=== PATIENT | male | born 1945 | race Caucasian/White ===

== ENCOUNTER 2017-03-15 20:14 | Inpatient (IN) | payer MEDICARE ==
[~2017-03-15] VITALS: Ht 193 cm; Wt 115.0 kg
[2017-03-15 20:28] VITALS: BP 154/77; PULSE 82; RESP 16; TEMP 97.8; O2SAT 97
[2017-03-15] MEDS ORDERED: SODIUM CHLORIDE 0.9% FLUSH 10 ML FLUSH IV FLUSH PRN (20:45)
--- NOTE | 2017-03-15 20:49 | PD ---
HPI Chief Complaint: Fall Time Seen by Provider: 20:23 Travel History International Travel<30 days: No Contact w/Intl Traveler<30days: No Traveled to known affect area: No History of Present Illness HPI 71-year-old male arrives with left knee pain after he tripped over a curb stop. Knee extension past 90 causes worsening of pain. Flexed at 90 he feels minimal pain if any. He denies loss of consciousness or head trauma however he does have a small cut on his lower lip as well as abrasions upon the right knee and right foot. Onset sudden. He takes no blood thinning agent. PFSH Past Medical History Arthritis: Yes High Cholesterol: Yes Hypertension: Yes Tetanus Vaccination: < 5 Years Influenza Vaccination: Yes Social History Alcohol Use: Yes (social) Tobacco Use: No Substance Use: No Allergies-Medications (Allergen,Severity, Reaction): Coded Allergies: No Known Allergies (Unverified , 03/15/17) Reported Meds & Prescriptions Reported Meds & Active Scripts Active Zofran Odt (Ondansetron Odt) 4 Mg Tab 4 Mg SL Q8HR PRN Lortab (Hydrocodone-Acetaminophen) 5-325 Mg Tab 1-2 Tab PO Q6H PRN Reported Multivitamin Men (Multiple Vitamins W/ Minerals) 1 Tab Tab 1 Tab PO DAILY Niacin 100 Mg Tab 200 Mg PO DAILY Glucosamine Chondroitin (Smloetzcvpv-Gmdtqufvttr-Qlv C-) 1 Tab Tab 1 Tab PO DAILY Calcium 600 + D (Calcium Carbonate-Vitamin D) 600-400 Mg-Unit Tab 2 Tab PO DAILY Fish Oil ([place]-3 Fatty Acids) 1,200 Mg Cap 1 Tab PO DAILY Terazosin (Terazosin HCl) 1 Mg Cap Unknown Dose PO HS Lisinopril 10 Mg Tab 10 Mg PO BID Pravastatin 40 Mg Tab 40 Mg PO DAILY Review of Systems Except as stated in HPI: all other systems reviewed are Neg Physical Exam Narrative GENERAL: 71-year-old male pleasant well-nourished well-developed SKIN: Focused skin assessment warm/dry. Trace punctate abrasions overlying the patellar distributions of each knee. Small abrasions present on the toes of the right foot. HEAD: Atraumatic. Normocephalic. EYES: Pupils equal and round. No scleral icterus. No injection or drainage. ENT: No nasal bleeding or discharge. Mucous membranes pink and moist. NECK: Trachea midline. No JVD. CARDIOVASCULAR: Regular rate and rhythm. No murmur appreciated. RESPIRATORY: No accessory muscle use. Clear to auscultation. Breath sounds equal bilaterally. GASTROINTESTINAL: Abdomen soft, non-tender, nondistended. Hepatic and splenic margins not palpable. MUSCULOSKELETAL: Left knee is flexed to 90 and the left patella feels somewhat displaced laterally. There is 2+ dorsalis pedis pulse bilaterally. NEUROLOGICAL: Awake and alert. No obvious cranial nerve deficits. Motor grossly within normal limits. Normal speech. PSYCHIATRIC: Appropriate mood and affect; insight and judgment normal. Data Data Last Documented VS Vital Signs Date Time Temp Pulse Resp B/P Pulse Ox O2 Delivery O2 Flow Rate FiO2 03/15/17 22:36 95 18 157/72 94 Room Air 03/15/17 20:28 97.8 Vital signs reviewed Orders Knee, Complete (4vws) (03/15/17 20:31) Iv Access Insert/Monitor (03/15/17 20:31) Ecg Monitoring (03/15/17 20:31) Oximetry (03/15/17 20:31) Sodium Chloride 0.9% Flush (Ns Flush) (03/15/17 20:45) Hydromorphone Pf Inj (Dilaudid Pf Inj) (03/15/17 21:30) Ct Knee W/O Contrast (03/15/17 ) Canvas Knee Splint (Cks) (03/15/17 ) Immobilizer Knee 20 Inch (03/15/17 ) Ondansetron Inj (Zofran Inj) (03/15/17 22:30) Crutches (03/15/17 ) Acetamin-Hydrocod 325-5 Mg ([place] 5-325 (03/16/17 00:30) MDM Medical Decision Making Medical Screen Exam Complete: Yes Emergency Medical Condition: Yes Differential Diagnosis Patella fracture, dislocation of the patella, tibial plateau injury, femur fracture Narrative Course Last 24 hours Impressions Knee X-Ray 03/15/172030 Signed Impressions: Service Date/Time: Wednesday, March 15, 2017 20:50 - CONCLUSION: 1. No acute fracture or subluxation demonstrated. 2. Large joint effusion and multiple joint bodies. 3. Patellofemoral predominant osteoarthritis. Rahul Dennis MD Lower Extremity CT 03/15/17 0000 Signed Impressions: Service Date/Time: Wednesday, March 15, 2017 22:26 - CONCLUSION: Extremely comminuted acute patella fracture and with a large, considerably displaced and rotated fracture fragment off of the lower pole as above. The rest of the patella fracture is minimally displaced. There is pre-existing severe patellofemoral compartment osteoarthritis. Rahul Dennis MD The patient is resting comfortably and feels better, is alert and in no distress. The patients results and examination findings were discussed. The repeat examination is unremarkable and benign. The history, exam, diagnostic testing, and current condition do not suggest any significant pathology to warrant further testing, continued ED treatment, admission, or surgical evaluation at this point. The vital signs have been stable. The patient does not have uncontrollable pain, intractable vomiting, or other significant symptoms. The patient's condition is stable and appropriate for discharge. The patient will pursue further outpatient evaluation with a primary care physician or other designated or consulting physician as indicated in the discharge instructions. The patient expressed understanding and was agreeable with this plan. Case discussed with the orthopedic surgeon Dr. Angelo. The patient can go home with a knee immobilizer and follow-up with his orthopedist in [place]. The has confirmed she will ensure prompt follow-up on Saturday, 2 days from today. Diagnosis Primary Impression: Patella fracture Qualified Code: S82.042A - Closed displaced comminuted fracture of left patella, initial encounter Referrals: Orthopedist 3 days PLEASE FOLLOW UP ON SATURDAY Additional Instructions: You have a choice when it comes to health care, and we are glad that you chose [facility]. Hopefully, we have met your expectations on today's visit. You are welcome to return to [facility] at any time, as we are committed to meeting the health care needs of our community. Med/Other Pt SpecificInfo: Prescription(s) given Scripts Ondansetron Odt (Zofran Odt)4 Mg Tab4 Mg SL Q8HR PRN (Nausea/Vomiting) #6 TAB Ref 0 Prov:Melvin Milner MD 03/15/17 Hydrocodone-Acetaminophen (Lortab)5-325 Mg Tab1-2 Tab PO Q6H PRN (PAIN SCALE 6 TO 10) #20 TAB Ref 0 Prov:Melvin Milner MD 5/19/17 Disposition: 01 DISCHARGE HOME Condition: Stable Milner,Melvin C. MD March 15, 2017 20:49
[2017-03-15] MEDS ORDERED: FISH120014 PO (20:55)
[2017-03-15] MEDS ORDERED: GLUCTAB6 PO (20:55)
[2017-03-15] MEDS ORDERED: CALCTAB70 PO (20:55)
[2017-03-15] MEDS ORDERED: MULT1TAB85 PO (20:55)
[2017-03-15] MEDS ORDERED: LISI10TA3 PO (20:55)
[2017-03-15] MEDS ORDERED: NIAC100T2 PO (20:55)
[2017-03-15] MEDS ORDERED: PRAV40TA2 PO (20:55)
[2017-03-15] MEDS ORDERED: TERA1CAP3 PO (20:55)
--- NOTE | 2017-03-15 21:16 | RADRPT ---
EXAM DATE/TIME: 03/15/2017 20:50 [facility] COMPARISON: No previous studies available for comparison. INDICATIONS : Pain from fall. MEDICAL HISTORY : None. SURGICAL HISTORY : None. ENCOUNTER: Initial ACUITY: 1 day PAIN SCORE: 10/10 LOCATION: Left anterior knee. FINDINGS: Clearly a large joint effusion. I don't see an acute fracture line or an acute appearing fracture fra gment. Nonacute appearing joint bodies are seen measuring 3 cm anterior to the notch and 1.1 cm poste romedially. There is also a 9 mm suprapatellar joint body. There is left knee osteoarthritis, severe of the patellofemoral compartment and moderate of the media l compartment. CONCLUSION: 1. No acute fracture or subluxation demonstrated. 2. Large joint effusion and multiple joint bodies. 3. Patellofemoral predominant osteoarthritis. Rahul Dennis MD on March 15, 2017 at 21:13 Board Certified Radiologist. This report was verified electronically.
[2017-03-15] MEDS: HYDROmorphone HCL PF 1 MG/ML VIAL IV PUSH ONE ×2 (21:30→21:37)
[2017-03-15 21:37] VITALS: BP 148/71; PULSE 84; RESP 18; O2SAT 97
[2017-03-15 22:27] VITALS: BP 77/46; PULSE 80; RESP 16; O2SAT 97
[2017-03-15] MEDS ORDERED: ONDANSETRON HCL 4 MG/2 ML VIAL IV PUSH ONE (22:30)
[2017-03-15 22:36] VITALS: BP 157/72; PULSE 95; RESP 18; O2SAT 94
--- NOTE | 2017-03-15 23:09 | RADRPT ---
EXAM DATE/TIME: 03/15/2017 22:26 [facility] COMPARISON: No previous studies available for comparison. INDICATIONS : Trauma, fall. RADIATION DOSE: 37.03 CTDIvol (mGy) MEDICAL HISTORY : None SURGICAL HISTORY : None. ENCOUNTER: Initial ACUITY: 1 day PAIN SCALE: 8/10 LOCATION: Left anterior knee TECHNIQUE: Volumetric scanning of the knee was performed. Using automated exposure control and adjustment of th e mA and/or kV according to patient size, radiation dose was kept as low as reasonably achievable to obtain optimal diagnostic quality images. FINDINGS: An extremely comminuted fracture is seen of the patella. At approximately 22 mm fracture fragment of the lower pole is rotated and displaced from the rest of the patella by approximately 2 cm. Otherwise , fracture displacement is minimal. Multiple oblique sagittally oriented fracture lines extend throug h the articular surfaces of both the lateral and medial facets. No subluxation of the main portion of the patella. Only a small portion of the extensor mechanism remains attached to the displaced/rotate d lower pole fracture fragment but otherwise the extensor mechanism is largely intact. There is a large acute lipohemarthrosis. There is an 11 mm nonacute appearing ossific fragment p osterior to the notch that is most likely an osteochondral body and unrelated to the patellar fractur e. There is pre-existing severe patellofemoral compartment osteoarthritis. CONCLUSION: Extremely comminuted acute patella fracture and with a large, considerably displaced and rotated frac ture fragment off of the lower pole as above. The rest of the patella fracture is minimally displaced . There is pre-existing severe patellofemoral compartment osteoarthritis. Rahul Dennis MD on March 15, 2017 at 23:02 Board Certified Radiologist. This report was verified electronically.
[2017-03-15] MEDS ORDERED: HYDR-3533 PO (23:39)
[2017-03-15] MEDS ORDERED: ZOFR4TAB3 SL (23:39)
[2017-03-16] VITALS (10 sets, daily range): BP systolic 95–158; BP diastolic 53–73; PULSE 76–100; RESP 16–19; TEMP 99–100.6; O2SAT 94–98
[2017-03-16] MEDS ORDERED: ACETAMINOPHEN/HYDROcodone 325 MG/5 MG TAB PO ONE (00:30)
[2017-03-16] MEDS ORDERED: SODIUM CHLOR 0.9% 1000 ML INJ 1,000 ML IV ONE ×2 (00:35→02:00)
[2017-03-16] MEDS ORDERED: SODIUM CHLORIDE 0.9% FLUSH 10 ML FLUSH IVF PRN (00:45)
[2017-03-16 01:10] LABS: AUTOMATED NEUTROPHIL # 12.2 TH/MM3 (1.8-7.7); BASOPHIL # 0.1 TH/MM3 (0-0.2); BASOPHIL % 0.5 % (0.0-2.0); EOSINOPHIL # 0.1 TH/MM3 (0-0.4); EOSINOPHIL % 0.6 % (0.0-4.0); HEMATOCRIT 40.8 % (39.0-51.0); HEMO FLAGS DIFF FINAL; LYMPH % 10.3 % (9.0-44.0); LYMPHOCYTE # 1.5 TH/MM3 (1.0-4.8); MEAN CELL VOLUME 88.9 FL (80.0-100.0); MEAN CORPUSCULAR HEMOGLOBIN 29.9 PG (27.0-34.0); MEAN CORPUSCULAR HGB CONC 33.6 % (32.0-36.0); MONO % 6.3 % (0.0-8.0); NEUT % 82.3 % (16.0-70.0); PLATELET COUNT 300 TH/MM3 (150-450); RED BLOOD COUNT 4.58 MIL/MM3 (4.50-5.90); RED CELL DISTRIBUTION WIDTH 13.3 % (11.6-17.2); WHITE BLOOD COUNT 14.9 TH/MM3 (4.0-11.0)
--- NOTE | 2017-03-16 01:10 | RADRPT ---
EXAM DATE/TIME: 03/16/2017 00:44 [facility] COMPARISON: No previous studies available for comparison. INDICATIONS : Chest discomfort. Palpitations. MEDICAL HISTORY : None. SURGICAL HISTORY : None. ENCOUNTER: Initial ACUITY: 1 day PAIN SCORE: 6/10 LOCATION: Bilateral chest FINDINGS: A single view of the chest demonstrates the lungs to be symmetrically aerated without evidence of mas s, infiltrate or effusion. Linear scarring or atelectasis at the bases. The cardiomediastinal contour s are unremarkable. Osseous structures are intact. CONCLUSION: 1. Minimal linear scarring or atelectasis at the bases. Remainder of exam unremarkable. Raghavendra Barton MD on March 16, 2017 at 1:07 Board Certified Radiologist. This report was verified electronically.
[2017-03-16 01:17] LABS: ANION GAP 7 MEQ/L (5-15); BICARBONATE 27.4 MEQ/L (21.0-32.0); BLOOD UREA NITROGEN 17 MG/DL (7-18); CHLORIDE 106 MEQ/L (98-107); GLOMERULAR FILTRATION RATE 79 ML/MIN (>89); MAGNESIUM 2.3 MG/DL (1.5-2.5); SODIUM (NA) 140 MEQ/L (136-145)
[2017-03-16 01:18] LABS: POTASSIUM 4.5 MEQ/L (3.5-5.1)
[2017-03-16 01:31] LABS: CREATINE KINASE 154 U/L (39-308)
[2017-03-16 01:44] LABS: CKMB 2.6 NG/ML (0.5-3.6)
[2017-03-16] MEDS ORDERED: ONDANSETRON HCL 4 MG/2 ML VIAL IVP PRN (04:00)
[2017-03-16] MEDS ORDERED: SODIUM CHLORIDE 0.9% FLUSH 10 ML FLUSH IV FLUSH PRN (04:00)
[2017-03-16] MEDS ORDERED: ACETAMINOPHEN 325 MG TAB PO PRN (04:00)
[2017-03-16] MEDS ORDERED: BISACODYL 10 MG SUPP RECTAL PRN (04:00)
[2017-03-16] MEDS: SODIUM CHLOR 0.9% 1000 ML INJ 1,000 ML IV SCH ×3 (04:50→21:08)
--- NOTE | 2017-03-16 04:55 | HHI.HP ---
HPI Service [facility] Primary Care Physician Non-Staff Admission Diagnosis L Patella Fx; Inability to Ambulate Diagnoses: (1) Fall Diagnosis: Principal (2) Patella fracture Diagnosis: Principal (3) Gait instability Diagnosis: Principal (4) Dehydration Diagnosis: Principal (5) Hypotension Diagnosis: Principal (6) Leukocytosis Diagnosis: Principal Travel History International Travel<30 Days: No Contact w/Intl Traveler <30 Da: No Traveled to Known Affected Are: No History of Present Illness This is a 71-year-old male with a PMH of HTN and Hyperlipidemia who was brought to the ER by EMS after trip and fall on curb with complaints of left knee pain. No LOC or head trauma reported. On arrival, BP 154/77, HR 82, O2 sat 97% on RA, Afebrile. WBC 14.9. Chemistry essentially unremarkable except for GFR 79. Troponin negative. CXR with no acute findings. Knee X-ray with no acute fracture or subluxation, large joint effusion and multiple joint bodies. CT Lower Extremity with extremely comminuted acute patellar fracture with large considerably displaced and rotated fracture fragment off the lower pole. Pt visiting from [place], relayed desire to follow w/ his Orthopedist at home. Dr. Angelo consulted by ER physician, recommended knee immobilizer and felt pt appropriate for discharge w/ follow up in [place]. Pt to be d/c'd from ER, however upon standing had episode of bradycardia w/ BP 70's. Good response to IVF w/ BP currently 130's. Was to be d/c'd again, however pt very unsteady due to knee injury w/ high risk for fall. Review of Systems Except as stated in HPI: all other systems reviewed are Neg ROS: 14 point review of systems otherwise negative. Past Family Social History Past Medical History PMH: HTN and Hyperlipidemia Past Surgical History PAST SURGICAL HISTORY: Right Foot Surgery Allergies: Coded Allergies: No Known Allergies (Unverified , 03/15/17) Family History PAST FAMILY HISTORY: Reviewed. No h/o DM or CAD Social History PAST SOCIAL HISTORY: Occasional alcohol. Negative for tobacco or drugs. Physical Exam Vital Signs Vital Signs Date Time Temp Pulse Resp B/P Pulse Ox O2 Delivery O2 Flow Rate FiO2 03/16/17 03:08 90 16 144/67 95 Room Air 03/16/17 01:44 95 18 156/71 97 Room Air 03/16/17 00:32 82 16 95/53 98 03/15/17 22:36 95 18 157/72 94 Room Air 03/15/17 22:27 80 16 77/46 97 Room Air 03/15/17 21:37 84 18 148/71 97 Room Air 03/15/17 20:28 97.8 82 16 154/77 97 Physical Exam PE: GENERAL: Elderly white male in no acute distress. HEENT: PERRLA, EOMI. No scleral icterus or conjunctival pallor. No lid lag or facial droop. CARDIOVASCULAR: Regular rate and rhythm. No obvious murmurs to auscultation. No chest tenderness to palpation. RESPIRATORY: No obvious rhonchi or wheezing. Clear to auscultation. Breath sounds equal bilaterally. GASTROINTESTINAL: Abdomen soft, non-tender, nondistended. BS normal. MUSCULOSKELETAL: Extremities without clubbing, cyanosis, or edema. No obvious deformities. Left knee immobilizer. NEUROLOGICAL: Awake, alert and oriented x4. No focal neurologic deficits. Moving both upper and lower extremities spontaneously. Laboratory Laboratory Tests Test 03/16/17 00:48 White Blood Count 14.9 Red Blood Count 4.58 Hemoglobin 13.7 Hematocrit 40.8 Mean Corpuscular Volume 88.9 Mean Corpuscular Hemoglobin 29.9 Mean Corpuscular Hemoglobin 33.6 Concent Red Cell Distribution Width 13.3 Platelet Count 300 Mean Platelet Volume 9.8 Neutrophils (%) (Auto) 82.3 Lymphocytes (%) (Auto) 10.3 Monocytes (%) (Auto) 6.3 Eosinophils (%) (Auto) 0.6 Basophils (%) (Auto) 0.5 Neutrophils # (Auto) 12.2 Lymphocytes # (Auto) 1.5 Monocytes # (Auto) 0.9 Eosinophils # (Auto) 0.1 Basophils # (Auto) 0.1 CBC Comment DIFF FINAL Differential Comment Sodium Level 140 Potassium Level 4.5 Chloride Level 106 Carbon Dioxide Level 27.4 Anion Gap 7 Blood Urea Nitrogen 17 Creatinine 0.94 Estimat Glomerular Filtration 79 Rate Random Glucose 180 Calcium Level 8.7 Magnesium Level 2.3 Total Creatine Kinase 154 Creatine Kinase MB 2.6 Troponin I LESS THAN 0.02 Result Diagram: 03/16/17 0048 03/16/17 0048 Assessment and Plan Problem List: (1) Fall ICD Code: W19.XXXA Status: Acute (2) Patella fracture ICD Code: S82.009A Status: Acute (3) Gait instability ICD Code: R26.81 Status: Acute (4) Dehydration ICD Code: E86.0 Status: Acute (5) Hypotension ICD Code: I95.9 Status: Acute (6) Leukocytosis ICD Code: D72.829 Status: Acute Assessment and Plan A/P: 1. Fall: s/p mechanical trip and fall, no head trauma or LOC reported. +left knee injury. 2. Left Patellar Fx: Knee X-ray w/ no acute fracture or subluxation, large joint effusion. CT Lower Extremity with extremely comminuted acute patellar fracture and large considerably displaced and rotated fracture fragment, images reviewed by me. Patient wishing to follow-up with his Orthopedic Surgeon back in [place]. Dr. Angelo consulted by ER physician, recommended knee immobilizer and fell patient appropriate for discharge with follow-up in [place]. Currently in knee immobilizer and crutches. Analgesics/antiemetics as needed. 3. Gait Instability: secondary to fall/patellar fracture, unable to ambulate safely, high risk for fall at this time. Will admit for Observation, PT for eval/tx. Plan is to follow up as outpatient w/ Orthopedist back home. 4. Hypotension: episode of hypotension in ER w/ BP 70's systolic, good response to IVF w/ BP currently 144/67, HR 90. Continue w/ IVF, monitor BP, hold BP meds for now until stabilized. 5. Dehydration: GFR 79, BUN/Creatinine normal. IVF for hydration, repeat labs in am. 6. Leukocytosis: WBC 14.9, no obvious source of infection. CXR w/ no acute findings, images reviewed by me. Possibly elevated in response to recent fall/ injury. Will repeat labs in am. 7. DVT Prophylaxis: Mechanical contraindication in light of knee injury. 8. Social work for d/c planning as needed. 9. Case discussed w/ ER physician at length. Problem Qualifiers (1) Patella fracture: Qualified Code: S82.042A - Closed displaced comminuted fracture of left patella , initial encounter Stacy Muro MD March 16, 2017 04:54
[2017-03-16] MEDS: MORPHINE SULFATE 4 MG/ML INJ IV PRN ×3 (06:07→15:31)
[2017-03-16] MEDS: SODIUM CHLORIDE 0.9% FLUSH 10 ML FLUSH IV FLUSH SCH ×2 (09:00→21:00)
[2017-03-16] MEDS: MULTIVITAMINS/MINERALS THERAPEUTIC TAB PO SCH (09:39)
[2017-03-16] MEDS: PRAVASTATIN SOD 40 MG TAB PO SCH (09:39)
--- NOTE | 2017-03-16 10:44 | HHI.PR ---
Subjective Remarks Follow up for left knee comminuted patellar fracture. The patient reports continued left knee pain with worsening swelling overnight, inability to ambulate. Patient's spouse at bedside, requesting either medical transfer to [place] for surgery or having surgery here then transferring back to [place] for rehabilitation. They do not believe they would be able to transport the patient back to [place] themselves as he is unable to ambulate. The patient also complains of right knee pain and significant pain with right knee ROM and bearing weight; concerned for possible fracture of the right knee. They asked me to speak with physician for insurance company at [place], called Dr. Taylor, reviewed CT findings and recommendation for surgery who will review the case. Objective Vitals Vital Signs Date Time Temp Pulse Resp B/P Pulse Ox O2 Delivery O2 Flow Rate FiO2 03/16/17 07:39 99.4 86 18 144/71 98 03/16/17 05:12 99.0 100 19 158/70 97 03/16/17 04:49 89 16 140/60 95 03/16/17 03:08 90 16 144/67 95 Room Air 03/16/17 01:44 95 18 156/71 97 Room Air 03/16/17 00:32 82 16 95/53 98 03/15/17 22:36 95 18 157/72 94 Room Air 03/15/17 22:27 80 16 77/46 97 Room Air 03/15/17 21:37 84 18 148/71 97 Room Air 03/15/17 20:28 97.8 82 16 154/77 97 Result Diagram: 03/16/17 0048 03/16/17 0048 Imaging Last Impressions Chest X-Ray 03/16/17 0035 Signed Impressions: Service Date/Time: Thursday, March 16, 2017 00:44 - CONCLUSION: 1. Minimal linear scarring or atelectasis at the bases. Remainder of exam unremarkable. Raghavendra Barton MD Knee X-Ray 03/15/172030 Signed Impressions: Service Date/Time: Wednesday, March 15, 2017 20:50 - CONCLUSION: 1. No acute fracture or subluxation demonstrated. 2. Large joint effusion and multiple joint bodies. 3. Patellofemoral predominant osteoarthritis. Rahul Dennis MD Lower Extremity CT 03/15/17 0000 Signed Impressions: Service Date/Time: Wednesday, March 15, 2017 22:26 - CONCLUSION: Extremely comminuted acute patella fracture and with a large, considerably displaced and rotated fracture fragment off of the lower pole as above. The rest of the patella fracture is minimally displaced. There is pre-existing severe patellofemoral compartment osteoarthritis. Rahul Dennis MD Objective Remarks GENERAL: Well-nourished, well-developed pleasant male patient in [facility]. SKIN: Warm and dry. No rash. HEENT: Normocephalic. Atraumatic.Pupils equal and round. Mucous membranes pink and moist. NECK: Supple. Trachea midline. CARDIOVASCULAR: Regular rate and rhythm. S1, S2 noted. No murmur appreciated. RESPIRATORY: No accessory muscle use. Clear to auscultation. Breath sounds equal bilaterally. GASTROINTESTINAL: Abdomen soft, non-tender, nondistended. Normoactive bowel sounds x4. MUSCULOSKELETAL: No obvious deformities. Extremities without clubbing, cyanosis , or edema. Left knee with significant diffuse swelling and ecchymosis, diffuse tenderness to palpation, currently in knee immobilizer. Right knee also edematous, significant pain with palpation and with flexion. 2+ bilateral dorsalis pedis pulses. NEUROLOGICAL: Awake and alert. No obvious cranial nerve deficits. Motor grossly within normal limits. 5/5 muscle strength in bilateral upper and lower extremities. Normal speech. PSYCHIATRIC: Appropriate mood and affect; insight and judgment normal. Medications and IVs Current Medications Medications (Trade) Dose Ordered Sig/Billy Route Start Time Stop Time Status Last Admin (NS 1000 ml Inj) 1,000 ml @ 100 mls/hr Q10H IV 03/16/17 03:51 03/16/17 04:50 (NS Flush) 2 ml UNSCH PRN IV FLUSH 03/16/17 04:00 (NS Flush) 2 ml BID IV FLUSH 03/16/17 09:00 (Zofran Inj) 4 mg Q6H PRN IVP 03/16/17 04:00 (Dulcolax Supp) 10 mg DAILY PRN RECTAL 03/16/17 04:00 (Tylenol) 650 mg Q6H PRN PO 03/16/17 04:00 ([place] 5-325 Mg) 1 tab Q4H PRN PO 03/16/17 04:00 (Morphine Inj) 2 mg Q3H PRN IV 03/16/17 04:00 03/16/17 06:07 (Theragran M Tab) 1 tab DAILY PO 03/16/17 09:00 03/16/17 09:39 (Pravachol) 40 mg DAILY PO 03/16/17 09:00 03/16/17 09:39 A/P Problem List: (1) Fall ICD Code: W19.XXXA Status: Acute (2) Patella fracture ICD Code: S82.009A Status: Acute (3) Gait instability ICD Code: R26.81 Status: Acute (4) Dehydration ICD Code: E86.0 Status: Acute (5) Hypotension ICD Code: I95.9 Status: Acute (6) Leukocytosis ICD Code: D72.829 Status: Acute Assessment and Plan 71-year-old male with a PMH of HTN and Hyperlipidemia who was brought to the ER by EMS after trip and fall on curb with complaints of left knee pain. Fall: s/p mechanical trip and fall, no head trauma or LOC reported. + bilateral patellar fractures, see below. PT consulted. Acute Severe Comminuted Left Patellar Fracture: CT left knee shows extremely comminuted acute patellar fracture and large considerably displaced and rotated fracture fragment, images reviewed by me. Dr. Angelo consulted by ER physician , recommended knee immobilizer and fell patient appropriate for discharge with follow-up in [place] as patient initially wanted to return to [place] for surgery; however patient unable to ambulate, and would like to proceed with surgery here and return to [place] for rehabilitation after. Discussed with patient's insurance company [place] physician Dr. Taylor at [phone], agrees to proceed with surgery here and will plan to arrange for transportation back to [place] for rehab. Currently in knee immobilizer with crutches; unable to ambulate. Analgesics/antiemetics as needed. Ice packs. Consulted Dr. Angelo , discussed with him, recommends NPO after midnight for possible surgery tomorrow. Acute Right Patellar Fracture: patient also fell on the right knee with significant swelling. Right knee CT shows patellar fracture with large vertical component and small horizontal component; hemarthrosis with large Contreras Cyst. Placed in canvas knee splint. Orthopedics consulted as above. Gait Instability: secondary to fall/patellar fracture, unable to ambulate safely, high risk for fall at this time. PT for eval/tx. Transient Hypotension: episode of hypotension in ER w/ BP 70's systolic, suspect vasovagal secondary to severe pain; good response to IVF w/ BP currently 144/67, HR 90. Continue w/ IVF, monitor BP, hold BP meds for now until stabilized. Dehydration: GFR 79, BUN/Creatinine normal. IVF for hydration, repeat labs today pending. Leukocytosis: WBC 14.9, no obvious source of infection. CXR w/ no acute findings, images reviewed by me. Possibly elevated in response to recent fall/ injury. Repeat CBC pending. DVT Prophylaxis: Mechanical contraindication in light of knee injury. Chemical contraindication with likely upcoming surgery. rehabilitation services manager for d/c planning as needed. Discharge Planning Admit to inpatient with bilateral patellar fractures, plan for surgery likely tomorrow. Problem Qualifiers (1) Patella fracture: Qualified Code: S82.042A - Closed displaced comminuted fracture of left patella , initial encounter Rosa Herrera PA-C March 16, 2017 10:43 am
[2017-03-16 10:47] LABS: AUTOMATED NEUTROPHIL # 9.5 TH/MM3 (1.8-7.7); BASOPHIL # 0.1 TH/MM3 (0-0.2); BASOPHIL % 0.7 % (0.0-2.0); EOSINOPHIL # 0.1 TH/MM3 (0-0.4); EOSINOPHIL % 0.9 % (0.0-4.0); HEMATOCRIT 39.2 % (39.0-51.0); HEMO FLAGS DIFF FINAL; LYMPH % 13.1 % (9.0-44.0); LYMPHOCYTE # 1.6 TH/MM3 (1.0-4.8); MEAN CELL VOLUME 89.9 FL (80.0-100.0); MEAN CORPUSCULAR HEMOGLOBIN 29.3 PG (27.0-34.0); MEAN CORPUSCULAR HGB CONC 32.6 % (32.0-36.0); NEUT % 76.3 % (16.0-70.0); PLATELET COUNT 287 TH/MM3 (150-450); RED BLOOD COUNT 4.36 MIL/MM3 (4.50-5.90); RED CELL DISTRIBUTION WIDTH 13.8 % (11.6-17.2); WHITE BLOOD COUNT 12.4 TH/MM3 (4.0-11.0)
[2017-03-16 11:15] LABS: ALT (GPT) 26 U/L (12-78); ANION GAP 6 MEQ/L (5-15); AST (GOT) 19 U/L (15-37); BICARBONATE 28.8 MEQ/L (21.0-32.0); BLOOD UREA NITROGEN 14 MG/DL (7-18); CHLORIDE 107 MEQ/L (98-107); GLOMERULAR FILTRATION RATE 87 ML/MIN (>89); POTASSIUM 3.7 MEQ/L (3.5-5.1); SODIUM (NA) 142 MEQ/L (136-145)
[2017-03-16 11:17] LABS: ALKALINE PHOSPHATASE 75 U/L (45-117); TOTAL BILIRUBIN ADULT 0.6 MG/DL (0.2-1.0)
--- NOTE | 2017-03-16 11:58 | RADRPT ---
EXAM DATE/TIME: 03/16/2017 10:47 [facility] COMPARISON: No previous studies available for comparison. INDICATIONS : Fall yesterday, unable to ambulate Left patella fx. RADIATION DOSE: 47.1 CTDIvol (mGy) MEDICAL HISTORY : Hypertension. SURGICAL HISTORY : None. ENCOUNTER: Subsequent ACUITY: 2 days PAIN SCALE: 8/10 LOCATION: Right knee TECHNIQUE: Volumetric scanning of the knee was performed. Using automated exposure control and adjustment of th e mA and/or kV according to patient size, radiation dose was kept as low as reasonably achievable to obtain optimal diagnostic quality images. FINDINGS: Nondisplaced patellar fracture. Vertical component extends from the superior to inferior margins of t he patella. Horizontal component extends from the vertical component of the fracture to the medial ma rgin of the patella. No other fractures identified. 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 No evidence of joint narrowing. Large joint effusion. Several faint calcific densities within th e medial recess of the joint, nondependent portion. Large Contreras cyst with fluid fluid level. CONCLUSION: 1. Patellar fracture with large vertical component and small horizontal component. Nondisplaced. 2. Hemarthrosis with large Contreras cyst. 3. Osteoarthritic findings. No joint narrowing. 4. Nonspecific calcific densities in the nondependent portion of the medial joint recess, may be in t he capsule. Andrez Andrade MD on March 16, 2017 at 11:53 Board Certified Radiologist. This report was verified electronically.
--- NOTE | 2017-03-16 15:50 | EKG ---
Date Performed: 03/16/2017 Time Performed: 00:41:36 PTAGE: 71 years EKG: Sinus rhythm NORMAL ECG NO PREVIOUS TRACING DOCTOR: Teresa Schrader Interpretating Date/Time 03/16/2017 15:47:12
[2017-03-16] MEDS: ACETAMINOPHEN/HYDROcodone 325 MG/5 MG TAB PO PRN ×2 (18:19→22:27)
[2017-03-17] VITALS: BP 147/71; PULSE 94; RESP 17; TEMP 99.6; O2SAT 94
[2017-03-17 04:00] VITALS: BP 149/71; PULSE 92; RESP 18; TEMP 98.6; O2SAT 95
[2017-03-17] MEDS ORDERED: INSULIN HUMAN REGULAR 1,000 UNITS/10 ML VIAL SQ PRN (04:00)
[2017-03-17] MEDS ORDERED: SODIUM CHLORID 0.9% 500 ML IV PRN (04:00)
[2017-03-17] MEDS ORDERED: POVIDONE IODINE 5% (ANTISEPSIS KIT) 4 APPLICATIONS EACH NARE PRN (04:00)
[2017-03-17] MEDS ORDERED: METOPROLOL TARTRATE 25 MG TAB PO PRN (04:00)
[2017-03-17] MEDS ORDERED: CHLORHEXIDINE GLUCONATE 2 % 1 PACK (2 CLOTHS) TOPICAL PRN (04:00)
[2017-03-17] MEDS ORDERED: LACTATED RINGER'S 1000 ML IV PRN (04:00)
[2017-03-17] MEDS: ACETAMINOPHEN/HYDROcodone 325 MG/5 MG TAB PO PRN (05:34)
[2017-03-17] MEDS ORDERED: ENALAPRILAT 1.25 MG/ML VIAL IV PRN (06:30)
[2017-03-17] MEDS ORDERED: cloNIDine HCL 0.1 MG TAB PO PRN (06:30)
[2017-03-17] MEDS: MULTIVITAMINS/MINERALS THERAPEUTIC TAB PO SCH (07:21)
[2017-03-17] MEDS: PRAVASTATIN SOD 40 MG TAB PO SCH (07:21)
[2017-03-17] MEDS: SODIUM CHLORIDE 0.9% FLUSH 10 ML FLUSH IV FLUSH SCH (07:21)
[2017-03-17 08:00] VITALS: BP 166/78; PULSE 83; RESP 16; TEMP 99.5; O2SAT 97
--- NOTE | 2017-03-17 09:28 | MB ---
cc: JOSE VILLALOBOS M.D. DATE OF CONSULTATION: 03/17/2017 REASON FOR CONSULTATION: Bilateral patellar fracture. HISTORY This patient is a 71-year-old male with a past history of hyperlipidemia, brought in the a.m. to [facility] emergency room after a fall on a curb complaining of bilateral knee pain, left greater than right knee. Denies hitting his head, denies loss of consciousness. He is complaining of significant pain, swelling of both knees, is unable to stand, ambulate or bend his knees. X-RAYS: Subsequently CT scan of bilateral knees have revealed evidence of bilateral patella fractures. He has multiple loose bodies on his joints, especially on the left side with bilateral large knee joint effusions. The patient is with his . They are visiting from [place]. He is unable to stand or ambulate due to the severe injuries he had sustained. He has been admitted to the medical service. Orthopedic service has been consulted because of his severe bilateral injuries and inability to ambulate. He is placed in knee immobilizer brace. Denies referred symptoms. PAST MEDICAL HISTORY: 1. Hypertension. 2. Hyperlipidemia. PAST SURGICAL HISTORY: 1. Surgery on his right foot. ALLERGIES: NO KNOWN DRUG ALLERGIES. MEDICATIONS: None. FAMILY HISTORY: Reviewed, noncontributory. SOCIAL HISTORY: He is . Occasionally drinks alcohol, nonsmoker, nondrinker. He is very active. He enjoys hiking with his . REVIEW OF SYSTEMS: Negative for 12 systems. The remainder of the review of systems is negative, other than what is mentioned in the HPI. PHYSICAL EXAMINATION: VITAL SIGNS: Temperature is 98, pulse 82, respiratory rate 16, blood pressure 150/70. The patient is alert, oriented, in no acute distress, lying in bed. HEENT: Normocephalic, atraumatic. Pupils equal, round and reactive to light. Extraocular movements intact. NECK: Supple. LUNGS: Clear. HEART: Regular rate and rhythm. ABDOMEN: Soft, nontender. EXTREMITIES: The patient has significant swelling over the bilateral knee joints, left and right side. He has superficial abrasions on the left side but no open wounds. He is unable to do intermittent straight leg raising of the right and left side. Any range of motion is painful upon gentle testing. She can move his ankle and toes distally. No calf swelling. Neurovascularly intact distally. X-RAYS: X-ray of the left knee as well as CT scan reviewed, reveal a highly comminuted displaced patella fracture with degenerative arthritic change present. CT scan of the right lower extremity reveals evidence of a highly comminuted patella fracture with only mild displacement of the multiple fragments. IMPRESSION AND PLAN: The patient is a 71 year-old male, status post fall, bilateral patella fractures. The left patella fracture shows highly comminuted and displaced fracture fragments. The right side has significant comminution but only mild displacement. Discussed the diagnosis with the patient and patient's . We talked about nonoperative treatment versus surgery, surgery with open reduction, internal fixation of the left displaced patella fracture. The risks of surgery were discussed which include but not limited to anesthesia, bleeding, infection, damage to nerves, blood vessels, pain, stiffness, failure of hardware, failure of components, blood clots. The patient and patient's have asked many questions which were very appropriate questions and they have all been answered. The patient and do wish to proceed with surgery on the left patella fracture. I would recommend nonoperative treatment on the right patella fracture with knee immobilizer brace. He is strict non-weightbearing on the bilateral lower extremities and maintain braces both pre and postoperatively for both knees. He will require DVT prophylaxis postoperatively which we will provide and the patient may eventually may return to the [place] area for further follow up after surgery. MD LUC Cedeno/SHERLEY /8:05 AM /9:06 AM
[2017-03-17] MEDS: SODIUM CHLOR 0.9% 1000 ML INJ 1,000 ML IV SCH (09:51)
[2017-03-17] MEDS ORDERED: ACETAMINOPHEN 1000 MG/100 ML VIAL IV ONE (10:56)
[2017-03-17] MEDS ORDERED: fentaNYL CITRATE 250 MCG/5 ML AMP ONE (10:56)
[2017-03-17] MEDS ORDERED: GENTAMICIN SULFATE 80 MG/2 ML VIAL ONE (11:05)
[2017-03-17] MEDS ORDERED: ceFAZolin INJ 1,000 MG VIAL ONE (11:05)
[2017-03-17] MEDS ORDERED: VANCOMYCIN HCL 1000 MG VIAL ONE (11:06)
[2017-03-17] MEDS ORDERED: PROPOFOL 200 MG/20 ML AMP IV ONE (12:00)
[2017-03-17] MEDS ORDERED: NEOSTIGMINE 3 MG/3 ML SYR IV ONE (12:00)
[2017-03-17] MEDS: DEXT 5%-NACL 0.45% 1000 ML INJ 1,000 ML IV SCH ×2 (12:42→21:22)
[2017-03-17] MEDS ORDERED: ACETAMINOPHEN/HYDROcodone 325 MG/7.5 MG TAB PO PRN (12:45)
[2017-03-17] MEDS ORDERED: MISCELLANEOUS PHARMACY INFORMATION XX ONE (12:45)
[2017-03-17] MEDS ORDERED: MISCELLANEOUS NURSING INFORMATION XX PRN (12:45)
[2017-03-17] MEDS ORDERED: MORPHINE SULFATE 4 MG/ML INJ IV PUSH PRN (12:45)
[2017-03-17] MEDS ORDERED: NALOXONE HCL 0.4 MG/ML AMP IV PRN (12:45)
[2017-03-17] MEDS ORDERED: HYDR-3288 PO (12:45)
[2017-03-17] MEDS ORDERED: diphenhydrAMINE HCL 25 MG CAP PO PRN (12:45)
[2017-03-17] MEDS ORDERED: SODIUM CHLORIDE 0.9% FLUSH 5 ML FLUSH IVF PRN (12:45)
[2017-03-17] MEDS ORDERED: Post-op Orders (for Pharmacy) MISC XX ONE (12:45)
[2017-03-17] MEDS ORDERED: ONDANSETRON HCL 4 MG/2 ML VIAL IVP PRN (12:45)
[2017-03-17] MEDS ORDERED: ENOX40P SQ (12:46)
[2017-03-17] MEDS ORDERED: ASPI81CH37 CHEW (12:47)
--- NOTE | 2017-03-17 12:52 | RADRPT ---
EXAM DATE/TIME: 03/17/2017 12:28 [facility] COMPARISON: CT KNEE LEFT W/O CONTRAST, March 15, 2017, 22:26. INDICATIONS : Left patella ORIF. MEDICAL HISTORY : None. SURGICAL HISTORY : None. ENCOUNTER: Initial ACUITY: 1 day PAIN SCORE: Non-responsive. LOCATION: Left Patella. FINDINGS: The comminuted and displaced patellar fracture seen previously has been operatively stabilized with c erclage wire and screw fixation with good alignment of the patellar fragments. CONCLUSION: Postoperative changes. Aamir Cooper MD on March 17, 2017 at 12:50 Board Certified Radiologist. This report was verified electronically.
[2017-03-17 14:00] VITALS: BP 160/79; PULSE 74; RESP 16; TEMP 99.3; O2SAT 95
--- NOTE | 2017-03-17 14:00 | HHI.PR ---
Subjective Remarks Follow up for bilateral patella fractures, hypertension. The patient is seen in PACU s/p right knee surgery. Currently feels drowsy and sore throat from intubation but he denies any other medical complaints. No fevers or chills. Pain fairly well controlled. Discussed restarting his blood pressure medication in the morning. He has not had a BM since his arrival. Objective Vitals Vital Signs Date Time Temp Pulse Resp B/P Pulse Ox O2 Delivery O2 Flow Rate FiO2 03/17/17 13:00 98.5 68 14 164/86 100 Nasal Cannula 3 03/17/17 08:00 99.5 83 16 166/78 97 03/17/17 04:00 98.6 92 18 149/71 95 03/17/17 00:00 99.6 94 17 147/71 94 03/16/17 20:00 100.4 92 17 143/66 97 03/16/17 18:55 Room Air 03/16/17 17:10 100.6 93 18 137/70 96 03/16/17 15:51 99.7 91 18 147/72 94 I/O 03/16/17 03/16/17 03/16/17 03/17/17 03/17/17 03/17/17 07:00 15:00 23:00 07:00 15:00 23:00 Intake Total 628 ml 563 ml 800 ml Output Total 250 ml 300 ml 150 ml Balance 378 ml 263 ml 650 ml Intake Oral 240 ml 0 ml IV Total 388 ml 563 ml Other 800 ml Output Urine Total 250 ml 300 ml Estimated Blood Loss 150 ml # Bowel Movements 0 0 Result Diagram: 03/16/17 1036 03/16/17 1036 Imaging Last Impressions Knee X-Ray 03/17/17 0000 Signed Impressions: Service Date/Time: Friday, March 17, 2017 12:28 - CONCLUSION: Postoperative changes. Aamir Cooper MD Chest X-Ray 03/16/17 0035 Signed Impressions: Service Date/Time: Thursday, March 16, 2017 00:44 - CONCLUSION: 1. Minimal linear scarring or atelectasis at the bases. Remainder of exam unremarkable. Raghavendra Barton MD Lower Extremity CT 03/16/17 0000 Signed Impressions: Service Date/Time: Thursday, March 16, 2017 10:47 - CONCLUSION: 1. Patellar fracture with large vertical component and small horizontal component. Nondisplaced. 2. Hemarthrosis with large Contreras cyst. 3. Osteoarthritic findings. No joint narrowing. 4. Nonspecific calcific densities in the nondependent portion of the medial joint recess, may be in the capsule. Andrez Andrade MD Objective Remarks GENERAL: Well-nourished, well-developed pleasant male patient in NAD. SKIN: Warm and dry. No rash. HEENT: Normocephalic. Atraumatic.Pupils equal and round. Mucous membranes pink and moist. CARDIOVASCULAR: Regular rate and rhythm. S1, S2 noted. No murmur appreciated. RESPIRATORY: No accessory muscle use. Clear to auscultation. Breath sounds equal bilaterally. GASTROINTESTINAL: Abdomen soft, non-tender, nondistended. Normoactive bowel sounds x4. MUSCULOSKELETAL: No obvious deformities. Extremities without clubbing, cyanosis , or edema. Left knee with significant diffuse edema, currently in wrapped in surgical dressing and knee immobilizer. Right knee also edematous, tender, in knee immobilizer. 2+ bilateral dorsalis pedis pulses. NEUROLOGICAL: Awake and alert. No obvious cranial nerve deficits. Motor grossly within normal limits. Normal speech. PSYCHIATRIC: Appropriate mood and affect; insight and judgment normal. Medications and IVs Current Medications Medications (Trade) Dose Ordered Sig/Billy Route Start Time Stop Time Status Last Admin (NS 1000 ml Inj) 1,000 ml @ 100 mls/hr Q10H IV 03/16/17 03:51 03/16/17 21:08 (Zofran Inj) 4 mg Q6H PRN IVP 03/16/17 04:00 (Dulcolax Supp) 10 mg DAILY PRN RECTAL 03/16/17 04:00 (Tylenol) 650 mg Q6H PRN PO 03/16/17 04:00 Pravastatin Sodium 40 mg 40 mg DAILY PO 03/16/17 09:00 03/16/17 09:39 Lactated Ringer's 1,000 ml @ 30 mls/hr Q24H PRN IV 03/17/17 04:00 03/20/17 03:59 (NS 500 ml Inj) 500 ml @ 30 mls/hr [id number] PRN IV 03/17/17 04:00 03/20/17 03:59 (Vasotec Inj) 1.25 mg Q6H PRN IV 03/17/17 06:30 Clonidine 0.1 mg 0.1 mg Q6H PRN PO 03/17/17 06:30 (D5W-1/2 NS 1000 ml Inj) 1,000 ml @ 100 mls/hr Q10H IV 03/17/17 12:42 (NS Flush) 2 ml UNSCH PRN IVF 03/17/17 12:45 (NS Flush) 2 ml BID IVF 03/17/17 21:00 (Lovenox Inj) 30 mg Q24H SQ 03/18/17 12:00 (Connie-Colace) 1 tab BID PO 03/17/17 21:00 Magnesium Hydroxide 10 ml 10 ml Q12H PRN PO 03/17/17 12:45 (Ancef Inj/NS Inj) 100 ml @ 200 mls/hr Q8H IV 03/17/17 16:00 Miscellaneous Information UNSCH PRN XX 03/17/17 12:45 ([place] 7.5-325 Mg) 1 tab Q4H PRN PO 03/17/17 12:45 ([place] 7.5-325 Mg) 2 tab Q6H PRN PO 03/17/17 12:45 (Morphine Inj) 3 mg Q3H PRN IV PUSH 03/17/17 12:45 (Zofran Inj) 4 mg Q4H PRN IVP 03/17/17 12:45 (Theragran M Tab) 1 tab DAILY PO 03/18/17 09:00 (Benadryl) 25 mg Q6H PRN PO 03/17/17 12:45 (Narcan Inj) 0.4 mg UNSCH PRN IV 03/17/17 12:45 A/P Problem List: (1) Fall ICD Code: W19.XXXA Status: Acute (2) Patella fracture ICD Code: S82.009A Status: Acute (3) Gait instability ICD Code: R26.81 Status: Acute (4) Dehydration ICD Code: E86.0 Status: Acute (5) Hypotension ICD Code: I95.9 Status: Acute (6) Leukocytosis ICD Code: D72.829 Status: Acute Assessment and Plan 71-year-old male with a PMH of HTN and Hyperlipidemia who was brought to the ER by EMS after trip and fall on curb with complaints of left knee pain. Fall: s/p mechanical trip and fall, no head trauma or LOC reported. + bilateral patellar fractures, see below. PT consulted, patient will need rehab placement post surgery. Acute Severe Comminuted Left Patellar Fracture: CT left knee shows extremely comminuted acute patellar fracture and large considerably displaced and rotated fracture fragment, images reviewed by me. Consulted orthopedics, s/p left knee ORIF 03/17, continue knee immobilizer, NWB BLE; ok to transfer to wheelchair with bilateral leg extensions, maintain CKS bilaterally. Discussed with patient' s insurance company [facility] physicians Dr. Taylor/Dr. Caceres at [phone], agreed to surgery here and plans to arrange for transportation back to [place] for rehab. Analgesics as needed with bowel regimen. Ice packs. DVT Prophylaxis per ortho. Acute Right Patellar Fracture: patient also fell on the right knee with significant swelling. Right knee CT shows patellar fracture with large vertical component and small horizontal component; hemarthrosis with large Contreras Cyst. Placed in canvas knee splint, nonoperative treatment per ortho Dr. Angelo. NWB. Gait Instability: secondary to fall/patellar fracture, unable to ambulate safely, high risk for fall at this time. NWB currently. Needs rehab. Transient Hypotension: episode of hypotension in ER w/ BP 70's systolic, suspect vasovagal secondary to severe pain; good response to IVF. Resolved. Hypertension: initially held BP meds with transient hypotension as above. Restart patient's lisinopril. Clonidine and IV Vasotec prn. Dehydration: GFR 79, BUN/Creatinine normal. IVF for hydration, repeat labs show improvement. Leukocytosis: WBC 14.9, no obvious source of infection. CXR w/ no acute findings, images reviewed by me. Possibly elevated in response to recent fall/ injury. Repeat CBC improved with WBC 12.4K. DVT Prophylaxis: on Lovenox per ortho analytics senior manager for d/c planning to rehab in [place]. Discharge Planning Case management to arrange rehab placement in [place]. Problem Qualifiers (1) Patella fracture: Qualified Code: S82.042A - Closed displaced comminuted fracture of left patella , initial encounter Rosa Herrera PA-C March 17, 2017 2:00 pm
[2017-03-17] MEDS: ACETAMINOPHEN/HYDROcodone 325 MG/7.5 MG TAB PO PRN ×2 (14:11→19:16)
[2017-03-17 16:00] VITALS: BP 146/70; PULSE 74; RESP 16; TEMP 98.5; O2SAT 97
[2017-03-17 19:00] VITALS: BP 166/74; PULSE 83; RESP 15; TEMP 99.5; O2SAT 90
[2017-03-17] MEDS: SODIUM CHLORIDE 0.9% FLUSH 5 ML FLUSH IVF SCH (21:00)
[2017-03-17] MEDS: MAGNESIUM HYDROXIDE SUSP 30 ML CUP PO PRN (21:22)
[2017-03-17] MEDS: DOCUSATE SODIUM 50 MG/SENNA 8.6 MG TAB PO SCH (21:22)
[2017-03-17] MEDS: LISINOPRIL 10 MG TAB PO SCH (21:22)
[2017-03-18] VITALS: BP 143/67; PULSE 91; RESP 16; TEMP 100.3; O2SAT 93
[2017-03-18] MEDS: ACETAMINOPHEN/HYDROcodone 325 MG/7.5 MG TAB PO PRN ×4 (00:32→16:59)
[2017-03-18 04:00] VITALS: BP 152/80; PULSE 87; RESP 17; TEMP 99.4; O2SAT 93
[2017-03-18] MEDS: DEXT 5%-NACL 0.45% 1000 ML INJ 1,000 ML IV SCH (05:40)
[2017-03-18] MEDS: DOCUSATE SODIUM 50 MG/SENNA 8.6 MG TAB PO SCH ×2 (07:55→20:58)
[2017-03-18] MEDS: NIACIN 100 MG TAB PO SCH (07:55)
[2017-03-18] MEDS: MULTIVITAMINS/MINERALS THERAPEUTIC TAB PO SCH (07:55)
[2017-03-18] MEDS: LISINOPRIL 10 MG TAB PO SCH ×2 (07:56→20:57)
[2017-03-18] MEDS: PRAVASTATIN SOD 40 MG TAB PO SCH (07:56)
[2017-03-18] MEDS: SODIUM CHLORIDE 0.9% FLUSH 5 ML FLUSH IVF SCH ×2 (07:57→20:58)
[2017-03-18 08:00] VITALS: BP 128/62; PULSE 82; RESP 16; TEMP 99; O2SAT 94
--- NOTE | 2017-03-18 10:22 | HHI.PR ---
Subjective Remarks Follow-up bilateral patellar fracture and hypertension. Seen with . He has no new complaints. Stable BP. Discussed with RN and case management Objective Vitals Vital Signs Date Time Temp Pulse Resp B/P Pulse Ox O2 Delivery O2 Flow Rate FiO2 03/18/17 08:00 99.0 82 16 128/62 94 03/18/17 04:00 99.4 87 17 152/80 93 03/18/17 00:00 100.3 91 16 143/67 93 03/17/17 19:10 Room Air 03/17/17 19:00 99.5 83 15 166/74 90 03/17/17 16:00 98.5 74 16 146/70 97 03/17/17 15:11 18 03/17/17 14:00 99.3 74 16 160/79 95 03/17/17 13:45 98.5 70 14 150/72 100 Nasal Cannula 2 03/17/17 13:30 66 14 132/60 100 Nasal Cannula 2 03/17/17 13:15 69 14 135/76 99 Nasal Cannula 2 03/17/17 13:00 98.5 68 14 164/86 100 Nasal Cannula 3 I/O 03/17/17 03/17/17 03/17/17 03/18/17 03/18/17 03/18/17 07:00 15:00 23:00 07:00 15:00 23:00 Intake Total 563 ml 1040 ml 944 ml 1028 ml Output Total 300 ml 750 ml 300 ml 240 ml Balance 263 ml 290 ml 644 ml 788 ml Intake Oral 0 ml 240 ml 480 ml 240 ml IV Total 563 ml 464 ml 788 ml Other 800 ml Output Urine Total 300 ml 600 ml 300 ml 240 ml Estimated Blood Loss 150 ml # Bowel Movements 0 0 0 0 Result Diagram: 03/16/17 1036 03/16/17 1036 Imaging Last Impressions Knee X-Ray 03/17/17 0000 Signed Impressions: Service Date/Time: Friday, March 17, 2017 12:28 - CONCLUSION: Postoperative changes. Aamir Cooper MD Chest X-Ray 03/16/17 0035 Signed Impressions: Service Date/Time: Thursday, March 16, 2017 00:44 - CONCLUSION: 1. Minimal linear scarring or atelectasis at the bases. Remainder of exam unremarkable. Raghavendra Barton MD Lower Extremity CT 03/16/17 0000 Signed Impressions: Service Date/Time: Thursday, March 16, 2017 10:47 - CONCLUSION: 1. Patellar fracture with large vertical component and small horizontal component. Nondisplaced. 2. Hemarthrosis with large Contreras cyst. 3. Osteoarthritic findings. No joint narrowing. 4. Nonspecific calcific densities in the nondependent portion of the medial joint recess, may be in the capsule. Andrez Andrade MD Objective Remarks GENERAL: Well-nourished, well-developed pleasant male patient in NAD. SKIN: Warm and dry. No rash. HEENT: Normocephalic. Atraumatic.Pupils equal and round. Mucous membranes pink and moist. CARDIOVASCULAR: Regular rate and rhythm. S1, S2 noted. No murmur appreciated. RESPIRATORY: No accessory muscle use. Clear to auscultation. Breath sounds equal bilaterally. GASTROINTESTINAL: Abdomen soft, non-tender, nondistended. Normoactive bowel sounds x4. MUSCULOSKELETAL: No obvious deformities. Extremities without clubbing, cyanosis , or edema. 2+ bilateral dorsalis pedis pulses. NEUROLOGICAL: Awake and alert. No obvious cranial nerve deficits. Motor grossly within normal limits. Normal speech. PSYCHIATRIC: Appropriate mood and affect; insight and judgment normal. Procedures ORIF left knee A/P Problem List: (1) Fall ICD Code: W19.XXXA Status: Acute (2) Patella fracture ICD Code: S82.009A Status: Acute (3) Gait instability ICD Code: R26.81 Status: Acute (4) Dehydration ICD Code: E86.0 Status: Resolved (5) Hypotension ICD Code: I95.9 Status: Resolved (6) Leukocytosis ICD Code: D72.829 Status: Acute Assessment and Plan 71-year-old male with a PMH of HTN and Hyperlipidemia who was brought to the ER by EMS after trip and fall on curb with complaints of left knee pain. Fall: s/p mechanical trip and fall, no head trauma or LOC reported. + bilateral patellar fractures, see below. PT consulted, patient will need rehab placement Acute Severe Comminuted Left Patellar Fracture: CT left knee shows extremely comminuted acute patellar fracture and large considerably displaced and rotated fracture fragment, images reviewed by me. Consulted orthopedics, s/p left knee ORIF 03/17, continue knee immobilizer, NWB BLE; ok to transfer to wheelchair with bilateral leg extensions, maintain CKS bilaterally. Discussed with patient' s insurance company [facility] physicians Dr. Taylor/Dr. Caceres at [phone], agreed to surgery here and plans to arrange for transportation back to [place] for rehab. Analgesics as needed with bowel regimen. Ice packs. Counseled regarding narcotics. DVT Prophylaxis per ortho. Acute Right Patellar Fracture: patient also fell on the right knee with significant swelling. Right knee CT shows patellar fracture with large vertical component and small horizontal component; hemarthrosis with large Contreras Cyst. Placed in canvas knee splint, nonoperative treatment per ortho Dr. Angelo. NWB. Gait Instability: secondary to fall/patellar fracture, unable to ambulate safely, high risk for fall at this time. NWB currently. Needs rehab. Transient Hypotension: episode of hypotension in ER w/ BP 70's systolic, suspect vasovagal secondary to severe pain; good response to IVF. Resolved. Hypertension: initially held BP meds with transient hypotension as above. Restarted patient's lisinopril. Clonidine and IV Vasotec prn. Dehydration: GFR 79, BUN/Creatinine normal. IVF for hydration, repeat labs show improvement. Discontinue IV hydration Leukocytosis: WBC 14.9, no obvious source of infection. CXR w/ no acute findings, images reviewed by me. Possibly elevated in response to recent fall/ injury. Repeat CBC improved with WBC 12.4K. DVT Prophylaxis: on Lovenox per ortho behavioral health care manager for d/c planning to rehab in [place]. Problem Qualifiers (1) Patella fracture: Qualified Code: S82.042A - Closed displaced comminuted fracture of left patella , initial encounter Jay Nation MD March 18, 2017 10:22
--- NOTE | 2017-03-18 10:28 | HHI.DCPOC ---
Discharge Care Plan Diagnosis: (1) Patella fracture (2) Dehydration (3) Hypotension (4) Gait instability Your Health Problems Are: Difficulty with ADL Exercise Tolerance Goals to Promote Your Health * To prevent worsening of your condition and complications * To maintain your health at the optimal level Directions to Meet Your Goals Take your medications as prescribed Follow your dietary instruction Follow activity as directed Keep your appointments as scheduled Take your immunizations and boosters as scheduled If your symptoms worsen call your PCP, if no PCP go to Urgent Care Center or Emergency Room Smoking is Dangerous to Your Health. Avoid second hand smoke Call the 24-hour hour crisis hotline for domestic abuse at Jay Nation MD March 18, 2017 10:28
[2017-03-18 12:00] VITALS: BP 142/66; PULSE 80; RESP 16; TEMP 99.2; O2SAT 96
[2017-03-18] MEDS: ENOXAPARIN SODIUM 30 MG/0.3 ML SYRINGE SQ SCH (12:00)
--- NOTE | 2017-03-18 13:14 | MP ---
cc: JOSE VILLALOBOS M.D. DATE OF SURGERY 03/17/2017 PREOPERATIVE DIAGNOSIS Left patella fracture. POSTOPERATIVE DIAGNOSES Left patella fracture. PROCEDURE Open reduction, internal fixation left patella fracture. SURGEON Dr. Jose Villalobos. ACCOUNTS RECEIVABLE COORDINATOR Parmjit Desai PA-C ANESTHESIA General. ESTIMATED BLOOD LOSS 100 cc. TOURNIQUET TIME 0 minutes. COMPLICATIONS None. IMPLANTS USED Synthes. JUSTIFICATION This patient is a 71-year-old male who fell sustaining bilateral patellar fractures. The left-sided significant comminution and displacement across the fracture. Orthopedic Surgery was consulted after hospital admission to [facility]. The patient was counseled as to his risks, benefits and alternatives to the above-named proposed surgical procedure. He did wish to proceed with surgery. PROCEDURE IN DETAIL Written consent was obtained. The patient was identified by name, taken to the operating room, placed supine and general anesthesia was administered as well as 2 grams of IV Ancef and 1 gram of IV vancomycin. The left lower extremity was prepped and draped using as isopropyl alcohol, Hibiclens solution and Chloraprep solution. After time-out was performed, a longitudinal incision was made over the anterior aspect of the left knee. There was a displaced fracture fragment along the undersurface of the patella which was seen on fluoroscopic imaging. A medial parapatellar arthrotomy was performed. This is allowed for assistance with open reduction of the fracture fragment. Subsequently two K-wires were then drilled providing preliminary fixation. There was also a longitudinal split along the superior portion and a transverse K-wire was also placed. Subsequently three separate Synthes 4.0-mm partially threaded cannulated screws were inserted over the guidewires. An 18-gauge wire was then placed to create a [id number] tension band construct through the anterior to posterior screws. Fluoroscopic imaging reviewed hardware placement and fracture reduction. The surgical wound was thoroughly irrigated with sterile saline solution. The arthrotomy incision was closed with #1 Vicryl suture, the subcutaneous layer with 2-0 Vicryl suture. The skin was closed with don. Sterile dressing was applied. The patient tolerated the procedure well. No intraoperative complications were noted. Parmjit Desai, physician phlebotomist lab assistant certified, was present during the entire procedure to include patient positioning and the procedure itself. The medical necessity of a physician phlebotomist lab assistant was indicated in the case due to the complexity of the procedure. He assisted in appropriate manipulation of the leg and also assisted in both achieving and maintaining fracture reduction along with implantation of the internal fixation device. MD LUC Cedeno/UNRULY /12:42 PM /1:04 PM
--- NOTE | 2017-03-18 13:36 | PD.ORT.PN ---
Subjective Post Op Day #: 1 Subjective Remarks pain under control Objective Vitals Vital Signs Date Time Temp Pulse Resp B/P Pulse Ox O2 Delivery O2 Flow Rate FiO2 03/18/17 08:00 99.0 82 16 128/62 94 03/18/17 04:00 99.4 87 17 152/80 93 03/18/17 00:00 100.3 91 16 143/67 93 03/17/17 19:10 Room Air 03/17/17 19:00 99.5 83 15 166/74 90 03/17/17 16:00 98.5 74 16 146/70 97 03/17/17 15:11 18 03/17/17 14:00 99.3 74 16 160/79 95 03/17/17 13:45 98.5 70 14 150/72 100 Nasal Cannula 2 I/O 03/17/17 03/17/17 03/17/17 03/18/17 03/18/17 03/18/17 06:59 14:59 22:59 06:59 14:59 22:59 Intake Total 563 ml 1040 ml 944 ml 1028 ml Output Total 300 ml 750 ml 300 ml 240 ml Balance 263 ml 290 ml 644 ml 788 ml Intake Oral 0 ml 240 ml 480 ml 240 ml IV Total 563 ml 464 ml 788 ml Other 800 ml Output Urine Total 300 ml 600 ml 300 ml 240 ml Estimated Blood Loss 150 ml # Bowel Movements 0 0 0 0 Result Diagram: 03/16/17 1036 03/16/17 1036 Objective Remarks in bed, nad LLE - dressing and CKS intact, neg homans, nvi RLE - swelling of the knee, CKS intact, neg homans, nvi Assessment & Plan Ortho Post Op Day #: 1 Problem List: Assessment and Plan s/p ORIF L patella fx POD#1 R patella fx non-op NWB BLE daily dressing changes LLE lovenox maintain CKS BLE - no ROM of knees as of yet d/c planning to snf in [place] provide patient copy of all xrays/CT, op notes ortho stable Leo Desai March 18, 2017 13:36
[2017-03-18 16:00] VITALS: BP 133/69; PULSE 83; RESP 18; TEMP 98.9; O2SAT 95
[2017-03-18 19:25] LABS: HEMOGLOBIN A1a 1.9 %; HEMOGLOBIN A1b 1.7 %; HEMOGLOBIN Ao 84.1 %; HEMOGLOBIN P3 3.9 %
[2017-03-18 20:15] VITALS: BP 142/68; PULSE 87; RESP 17; TEMP 100.5; O2SAT 96
[2017-03-18] MEDS: MAGNESIUM HYDROXIDE SUSP 30 ML CUP PO PRN (20:57)
[2017-03-19] VITALS (7 sets, daily range): BP systolic 135–154; BP diastolic 65–77; PULSE 81–100; RESP 17–18; TEMP 97.9–101.2; O2SAT 95–97
[2017-03-19] MEDS: ACETAMINOPHEN/HYDROcodone 325 MG/7.5 MG TAB PO PRN ×3 (01:33→21:12)
[2017-03-19] MEDS: MAGNESIUM HYDROXIDE SUSP 30 ML CUP PO PRN (07:28)
[2017-03-19] MEDS: DOCUSATE SODIUM 50 MG/SENNA 8.6 MG TAB PO SCH ×2 (07:28→21:12)
[2017-03-19] MEDS: LISINOPRIL 10 MG TAB PO SCH ×2 (07:28→21:12)
[2017-03-19] MEDS: NIACIN 100 MG TAB PO SCH (07:28)
[2017-03-19] MEDS: MULTIVITAMINS/MINERALS THERAPEUTIC TAB PO SCH (07:28)
[2017-03-19] MEDS: PRAVASTATIN SOD 40 MG TAB PO SCH (07:28)
[2017-03-19] MEDS: SODIUM CHLORIDE 0.9% FLUSH 5 ML FLUSH IVF SCH ×2 (09:00→21:12)
--- NOTE | 2017-03-19 09:02 | PD.ORT.PN ---
Subjective Post Op Day #: 2 Subjective Remarks pain under control. no new complaints. Objective Vitals Vital Signs Date Time Temp Pulse Resp B/P Pulse Ox O2 Delivery O2 Flow Rate FiO2 03/19/17 08:10 98.5 89 18 152/77 96 03/19/17 04:15 98.8 87 17 142/73 95 03/19/17 00:15 98.8 90 17 136/65 95 03/18/17 20:15 100.5 87 17 142/68 96 03/18/17 16:00 98.9 83 18 133/69 95 03/18/17 12:00 99.2 80 16 142/66 96 I/O 03/18/17 03/18/17 03/18/17 03/19/17 03/19/17 03/19/17 07:00 15:00 23:00 07:00 15:00 23:00 Intake Total 1028 ml 480 ml 240 ml 120 ml Output Total 240 ml 350 ml 325 ml 600 ml Balance 788 ml 130 ml -85 ml -480 ml Intake Oral 240 ml 480 ml 240 ml 120 ml IV Total 788 ml Output Urine Total 240 ml 350 ml 325 ml 600 ml # Voids 2 # Bowel Movements 0 0 0 Result Diagram: 03/16/17 1036 03/16/17 1036 Objective Remarks in bed, nad LLE - dressing and CKS intact, neg homans, nvi RLE - swelling of the knee, CKS intact, neg homans, nvi Assessment & Plan Ortho Post Op Day #: 2 Problem List: Assessment and Plan s/p ORIF L patella fx POD#1 R patella fx non-op NWB BLE daily dressing changes LLE lovenox maintain CKS BLE - no ROM of knees as of yet d/c planning to snf in [place] provide patient copy of all xrays/CT, op notes ortho stable - cleared by ortho when arrangements made Leo Desai March 19, 2017 09:02
[2017-03-19] MEDS: ENOXAPARIN SODIUM 30 MG/0.3 ML SYRINGE SQ SCH (11:36)
--- NOTE | 2017-03-19 13:07 | HHI.PR ---
Subjective Remarks Follow-up knee injuries. Complaining of knee pain controlled with medications. Awaiting arrangements for transfer to [facility]. Discussed with and RN Objective Vitals Vital Signs Date Time Temp Pulse Resp B/P Pulse Ox O2 Delivery O2 Flow Rate FiO2 03/19/17 08:10 98.5 89 18 152/77 96 03/19/17 04:15 98.8 87 17 142/73 95 03/19/17 00:15 98.8 90 17 136/65 95 03/18/17 20:15 100.5 87 17 142/68 96 03/18/17 16:00 98.9 83 18 133/69 95 I/O 03/18/17 03/18/17 03/18/17 03/19/17 03/19/17 03/19/17 07:00 15:00 23:00 07:00 15:00 23:00 Intake Total 1028 ml 480 ml 240 ml 120 ml Output Total 240 ml 350 ml 325 ml 600 ml Balance 788 ml 130 ml -85 ml -480 ml Intake Oral 240 ml 480 ml 240 ml 120 ml IV Total 788 ml Output Urine Total 240 ml 350 ml 325 ml 600 ml # Voids 2 # Bowel Movements 0 0 0 Result Diagram: 03/16/17 1036 03/16/17 1036 Imaging Last Impressions Knee X-Ray 03/17/17 0000 Signed Impressions: Service Date/Time: Friday, March 17, 2017 12:28 - CONCLUSION: Postoperative changes. Aamir Cooper MD Chest X-Ray 03/16/17 0035 Signed Impressions: Service Date/Time: Thursday, March 16, 2017 00:44 - CONCLUSION: 1. Minimal linear scarring or atelectasis at the bases. Remainder of exam unremarkable. Raghavendra Barton MD Lower Extremity CT 03/16/17 0000 Signed Impressions: Service Date/Time: Thursday, March 16, 2017 10:47 - CONCLUSION: 1. Patellar fracture with large vertical component and small horizontal component. Nondisplaced. 2. Hemarthrosis with large Contreras cyst. 3. Osteoarthritic findings. No joint narrowing. 4. Nonspecific calcific densities in the nondependent portion of the medial joint recess, may be in the capsule. Andrez Andrade MD Objective Remarks GENERAL: Well-nourished, well-developed pleasant male patient in [place]. SKIN: Warm and dry. No rash. HEENT: Normocephalic. Atraumatic.Pupils equal and round. Mucous membranes pink and moist. CARDIOVASCULAR: Regular rate and rhythm. S1, S2 noted. No murmur appreciated. RESPIRATORY: No accessory muscle use. Clear to auscultation. Breath sounds equal bilaterally. GASTROINTESTINAL: Abdomen soft, non-tender, nondistended. Normoactive bowel sounds x4. MUSCULOSKELETAL: No obvious deformities. Extremities without clubbing, cyanosis , or edema. 2+ bilateral dorsalis pedis pulses. NEUROLOGICAL: Awake and alert. No obvious cranial nerve deficits. Motor grossly within normal limits. Normal speech. Nonfocal PSYCHIATRIC: Appropriate mood and affect; insight and judgment normal. Procedures ORIF left knee A/P Problem List: (1) Fall ICD Code: W19.XXXA Status: Acute (2) Patella fracture ICD Code: S82.009A Status: Acute (3) Gait instability ICD Code: R26.81 Status: Acute (4) Dehydration ICD Code: E86.0 Status: Resolved (5) Hypotension ICD Code: I95.9 Status: Resolved (6) Leukocytosis ICD Code: D72.829 Status: Acute Assessment and Plan 71-year-old male with a PMH of HTN and Hyperlipidemia who was brought to the ER by EMS after trip and fall on curb with complaints of left knee pain. Fall: s/p mechanical trip and fall, no head trauma or LOC reported. + bilateral patellar fractures, see below. PT consulted, patient will need rehab placement Acute Severe Comminuted Left Patellar Fracture: CT left knee shows extremely comminuted acute patellar fracture and large considerably displaced and rotated fracture fragment, images reviewed by me. Consulted orthopedics, s/p left knee ORIF 03/17, continue knee immobilizer, NWB BLE; ok to transfer to wheelchair with bilateral leg extensions, maintain CKS bilaterally. Discussed with patient' s insurance company [facility] physicians Dr. Taylor/Dr. Caceres at [phone], agreed to surgery here and plans to arrange for transportation back to [place] for rehab. Analgesics as needed with bowel regimen. Ice packs. Counseled regarding narcotics. DVT Prophylaxis per ortho. Stable Acute Right Patellar Fracture: patient also fell on the right knee with significant swelling. Right knee CT shows patellar fracture with large vertical component and small horizontal component; hemarthrosis with large Contreras Cyst. Placed in canvas knee splint, nonoperative treatment per ortho Dr. Angelo. NWB. Stable Gait Instability: secondary to fall/patellar fracture, unable to ambulate safely, high risk for fall at this time. NWB currently. Needs rehab. Transient Hypotension: episode of hypotension in ER w/ BP 70's systolic, suspect vasovagal secondary to severe pain; good response to IVF. Resolved. Hypertension: initially held BP meds with transient hypotension as above. Restarted patient's lisinopril. Clonidine and IV Vasotec prn. Stable Dehydration: GFR 79, BUN/Creatinine normal. IVF for hydration, repeat labs show improvement. Discontinue IV hydration Leukocytosis: WBC 14.9, no obvious source of infection. CXR w/ no acute findings, images reviewed by me. Possibly elevated in response to recent fall/ injury. Repeat CBC improved with WBC 12.4K. Hyperglycemia. A1c 6. 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 Discharge Planning Stable for discharge Problem Qualifiers (1) Patella fracture: Qualified Code: S82.042A - Closed displaced comminuted fracture of left patella , initial encounter Jay Nation MD March 19, 2017 13:07
--- NOTE | 2017-03-19 17:50 | RADRPT ---
EXAM DATE/TIME: 03/19/2017 17:35 [facility] COMPARISON: CHEST SINGLE AP, March 16, 2017, 0:44. INDICATIONS : Shortness of breath. MEDICAL HISTORY : None. SURGICAL HISTORY : None. ENCOUNTER: Initial ACUITY: 1 day PAIN SCORE: 0/10 LOCATION: Bilateral chest FINDINGS: Portable AP view of the chest demonstrates a normal-sized cardiac silhouette. Lungs are underinflated . There are bibasilar opacities with a somewhat linear configuration. No effusion or pneumothorax is visualized. Bones and soft tissues demonstrate no acute finding. CONCLUSION: Underinflated examination with bibasilar opacity with an appearance favoring subsegmental atelectasis . Rahul Mai MD on March 19, 2017 at 17:48 Board Certified Radiologist. This report was verified electronically.
[2017-03-19 18:05] LABS: BLOOD, URINE NEG (NEG); GLUCOSE,URINE NEG (NEG); KETONE, URINE NEG (NEG); NITRITE,URINE NEG (NEG); URINE COLOR LIGHT-YELLOW (YELLW/STRAW)
[2017-03-19 18:07] LABS: COMMENT (UR) CULT NOT INDICATED; CULTURE IF INDICATED CULT NOT INDICATED
[2017-03-19 18:55] LABS: BASOPHIL # 0.1 TH/MM3 (0-0.2); BASOPHIL % 0.5 % (0.0-2.0); EOSINOPHIL # 0.1 TH/MM3 (0-0.4); EOSINOPHIL % 1.2 % (0.0-4.0); HEMO FLAGS DIFF FINAL; LYMPH % 10.3 % (9.0-44.0); LYMPHOCYTE # 1.2 TH/MM3 (1.0-4.8); MEAN CELL VOLUME 88.3 FL (80.0-100.0); MEAN CORPUSCULAR HEMOGLOBIN 29.9 PG (27.0-34.0); MEAN CORPUSCULAR HGB CONC 33.8 % (32.0-36.0); MONO % 10.1 % (0.0-8.0); NEUT % 77.9 % (16.0-70.0); PLATELET COUNT 265 TH/MM3 (150-450); RED BLOOD COUNT 3.85 MIL/MM3 (4.50-5.90); WHITE BLOOD COUNT 11.6 TH/MM3 (4.0-11.0)
[2017-03-19 19:21] LABS: BICARBONATE 27.8 MEQ/L (21.0-32.0); MAGNESIUM 2.5 MG/DL (1.5-2.5); POTASSIUM 4.1 MEQ/L (3.5-5.1)
[2017-03-19] MEDS: RESP: ALBUTEROL 0.63 MG/3 ML NEB (SCH) NEB (21:05)
[2017-03-20 04:00] VITALS: BP 153/78; PULSE 81; RESP 17; TEMP 98.3; O2SAT 96
[2017-03-20] MEDS: ACETAMINOPHEN/HYDROcodone 325 MG/7.5 MG TAB PO PRN ×2 (04:12→08:28)
[2017-03-20] MEDS: NIACIN 100 MG TAB PO SCH (07:25)
[2017-03-20] MEDS: MULTIVITAMINS/MINERALS THERAPEUTIC TAB PO SCH (07:26)
[2017-03-20] MEDS: DOCUSATE SODIUM 50 MG/SENNA 8.6 MG TAB PO SCH (07:26)
[2017-03-20] MEDS: PRAVASTATIN SOD 40 MG TAB PO SCH (07:26)
[2017-03-20] MEDS: LISINOPRIL 10 MG TAB PO SCH (07:26)
[2017-03-20 07:38] VITALS: BP 132/62; PULSE 80; RESP 17; TEMP 98.3; O2SAT 96
[2017-03-20] MEDS: RESP: ALBUTEROL 0.63 MG/3 ML NEB (SCH) NEB (07:50)
--- NOTE | 2017-03-20 08:35 | PD.ORT.PN ---
Subjective Post Op Day #: 3 Subjective Remarks pain under control. no new complaints. feeling better. Objective Vitals Vital Signs Date Time Temp Pulse Resp B/P Pulse Ox O2 Delivery O2 Flow Rate FiO2 03/20/17 07:38 98.3 80 17 132/62 96 03/20/17 04:00 98.3 81 17 153/78 96 03/19/17 23:50 98.8 85 17 154/71 95 03/19/17 20:20 98.7 81 17 142/71 95 03/19/17 16:35 99.8 97 18 147/73 96 03/19/17 12:30 101.2 100 18 135/71 97 I/O 03/19/17 03/19/17 03/19/17 03/20/17 03/20/17 03/20/17 07:00 15:00 23:00 07:00 15:00 23:00 Intake Total 120 ml 1280 ml 240 ml 480 ml Output Total 600 ml 625 ml 600 ml Balance -480 ml 1280 ml -385 ml -120 ml Intake Oral 120 ml 1280 ml 240 ml 480 ml Output Urine Total 600 ml 625 ml 600 ml # Voids 5 # Bowel Movements 0 1 0 Result Diagram: 03/19/173 03/19/17 183 Objective Remarks in bed, nad LLE - incision no erythema/no drainage, CKS intact, neg homans, nvi RLE - swelling of the knee improving, CKS intact, neg homans, nvi Assessment & Plan Ortho Post Op Day #: 3 Problem List: Assessment and Plan s/p ORIF L patella fx POD#3 R patella fx non-op NWB BLE daily dressing changes LLE lovenox maintain CKS BLE - no ROM of knees as of yet d/c planning to snf in [place] - provide patient copy of all xrays/CT, op notes ortho stable - cleared by ortho when arrangements made Leo Desai March 20, 2017 08:34
--- NOTE | 2017-03-20 10:28 | HHI.DS ---
Discharge Summary Admission Date March 16, 2017 at 14:30 Discharge Date: March 20, 2017 Admitting Diagnosis L Patella Fx; Inability to Ambulate (1) Fall ICD Code: W19.XXXA Diagnosis: Principal (2) Patella fracture ICD Code: S82.009A Diagnosis: Principal (3) Gait instability ICD Code: R26.81 Diagnosis: Principal (4) Dehydration ICD Code: E86.0 Diagnosis: Principal (5) Hypotension ICD Code: I95.9 Diagnosis: Principal (6) Leukocytosis ICD Code: D72.829 Diagnosis: Principal Procedures ORIF left knee Brief History - From Admission This is a 71-year-old male with a PMH of HTN and Hyperlipidemia who was brought to the ER by EMS after trip and fall on curb with complaints of left knee pain. No LOC or head trauma reported. On arrival, BP 154/77, HR 82, O2 sat 97% on RA, Afebrile. WBC 14.9. Chemistry essentially unremarkable except for GFR 79. Troponin negative. CXR with no acute findings. Knee X-ray with no acute fracture or subluxation, large joint effusion and multiple joint bodies. CT Lower Extremity with extremely comminuted acute patellar fracture with large considerably displaced and rotated fracture fragment off the lower pole. Pt visiting from [place], relayed desire to follow w/ his Orthopedist at home. Dr. Angelo consulted by ER physician, recommended knee immobilizer and felt pt appropriate for discharge w/ follow up in [place]. Pt to be d/c'd from ER, however upon standing had episode of bradycardia w/ BP 70's. Good response to IVF w/ BP currently 130's. Was to be d/c'd again, however pt very unsteady due to knee injury w/ high risk for fall. CBC/BMP: 03/19/17 1833 03/19/17 1833 Significant Findings Laboratory Tests Test 03/19/17 18:33 White Blood Count 11.6 TH/MM3 (4.0-11.0) Red Blood Count 3.85 MIL/MM3 (4.50-5.90) Hemoglobin 11.5 GM/DL (13.0-17.0) Hematocrit 34.0 % (39.0-51.0) Neutrophils (%) (Auto) 77.9 % (16.0-70.0) Monocytes (%) (Auto) 10.1 % (0.0-8.0) Neutrophils # (Auto) 9.0 TH/MM3 (1.8-7.7) Monocytes # (Auto) 1.2 TH/MM3 (0-0.9) Random Glucose 158 MG/DL (74-106) Calcium Level 8.2 MG/DL (8.5-10.1) Imaging Last Impressions Chest X-Ray 03/19/17 0000 Signed Impressions: Service Date/Time: Sunday, March 19, 2017 17:35 - CONCLUSION: Underinflated examination with bibasilar opacity with an appearance favoring subsegmental atelectasis. Rahul Mai MD Knee X-Ray 03/17/17 0000 Signed Impressions: Service Date/Time: Friday, March 17, 2017 12:28 - CONCLUSION: Postoperative changes. Aamir Cooper MD Lower Extremity CT 03/16/17 0000 Signed Impressions: Service Date/Time: Thursday, March 16, 2017 10:47 - CONCLUSION: 1. Patellar fracture with large vertical component and small horizontal component. Nondisplaced. 2. Hemarthrosis with large Contreras cyst. 3. Osteoarthritic findings. No joint narrowing. 4. Nonspecific calcific densities in the nondependent portion of the medial joint recess, may be in the capsule. Andrez nAdrade MD PE at Discharge GENERAL: Well-nourished, well-developed pleasant male patient in [facility]. SKIN: Warm and dry. No rash. HEENT: Normocephalic. Atraumatic.Pupils equal and round. Mucous membranes pink and moist. CARDIOVASCULAR: Regular rate and rhythm. S1, S2 noted. No murmur appreciated. RESPIRATORY: No accessory muscle use. Clear to auscultation. Breath sounds equal bilaterally. GASTROINTESTINAL: Abdomen soft, non-tender, nondistended. Normoactive bowel sounds x4. MUSCULOSKELETAL: No obvious deformities. Extremities without clubbing, cyanosis , or edema. 2+ bilateral dorsalis pedis pulses. NEUROLOGICAL: Awake and alert. No obvious cranial nerve deficits. Motor grossly within normal limits. Normal speech. Nonfocal PSYCHIATRIC: Appropriate mood and affect; insight and judgment normal. Hospital Course 71-year-old male with a PMH of HTN and Hyperlipidemia who was brought to the ER by EMS after trip and fall on curb with complaints of left knee pain. Fall: s/p mechanical trip and fall, no head trauma or LOC reported. + bilateral patellar fractures, see below. PT consulted, patient will need rehab placement Acute Severe Comminuted Left Patellar Fracture: CT left knee shows extremely comminuted acute patellar fracture and large considerably displaced and rotated fracture fragment, images reviewed by me. Consulted orthopedics, s/p left knee ORIF 03/17, continue knee immobilizer, NWB BLE; ok to transfer to wheelchair with bilateral leg extensions, maintain CKS bilaterally. Discussed with patient' s insurance company [facility] physicians Dr. Taylor/Dr. Caceres at [phone], agreed to surgery here and plans to arrange for transportation back to [place] for rehab. Analgesics as needed with bowel regimen. Ice packs. Counseled regarding narcotics. DVT Prophylaxis per ortho. Stable Acute Right Patellar Fracture: patient also fell on the right knee with significant swelling. Right knee CT shows patellar fracture with large vertical component and small horizontal component; hemarthrosis with large Contreras Cyst. Placed in canvas knee splint, nonoperative treatment per ortho Dr. Angelo. NWB. Stable Gait Instability: secondary to fall/patellar fracture, unable to ambulate safely, high risk for fall at this time. NWB currently. Needs rehab. Transient Hypotension: episode of hypotension in ER w/ BP 70's systolic, suspect vasovagal secondary to severe pain; good response to IVF. Resolved. Hypertension: initially held BP meds with transient hypotension as above. Restarted patient's lisinopril. Clonidine and IV Vasotec prn. Stable Dehydration: GFR 79, BUN/Creatinine normal. IVF for hydration, repeat labs show improvement. Discontinue IV hydration Leukocytosis: WBC 14.9, no obvious source of infection. CXR w/ no acute findings, images reviewed by me. Possibly elevated in response to recent fall/ injury. Repeat CBC improved with WBC 12.4K. Fever secondary to atelectasis. Repeat chest x-ray findings suggestive of atelectasis. Urinalysis negative. Incentive spirometry Hyperglycemia. A1c 6. Monitor . Counseled DVT Prophylaxis: on Lovenox per ortho Pt Condition on Discharge: Stable Discharge Disposition: Discharge to SNF Discharge Time: > 30 minutes Discharge Instructions DIET: Follow Instructions for: As Tolerated, No Restrictions Activities you can perform: Regular-No Restrictions, Non Weight Bearing Activities to Avoid: Driving Other Activity Instructions: NWB BLE Follow up Referrals: Orthopedics - 1 Week PCP Follow-up - 1 Week New Medications: Aspirin (Aspirin Low Dose) 81 Mg Chew 81 MG CHEW BID Prevent Blood Clot #60 Ref 0 TAB Enoxaparin Inj (Lovenox Inj) 40 Mg/0.4 Ml Syr 40 MG SQ DAILY Blood Clot Prevention #7 Ref 0 SYRINGE Hydrocodone-Acetaminophen ([place]) 7.5-325 mg Tab 1-2 TAB PO Q6H PRN PAIN #90 Ref 0 TAB Continued Medications: Calcium Carbonate-Vitamin D (Calcium 600 + D) 600-400 Mg-Unit Tab 2 TAB PO DAILY TAB Szsxqspebxm-Jbdttircrtu-Lni C- (Glucosamine Chondroitin) 1 Tab Tab 1 TAB PO DAILY Lisinopril (Lisinopril) 10 Mg Tab 10 MG PO BID #30 Ref 0 TAB Multiple Vitamins W/ Minerals (Multivitamin Men) 1 Tab Tab 1 TAB PO DAILY Nutritional Supplement Ref 0 TAB Niacin (Niacin) 100 Mg Tab 200 MG PO DAILY Nutritional Supplement #30 Ref 0 TAB Ondansetron Odt (Zofran Odt) 4 Mg Tab 4 MG SL Q8HR PRN Nausea/Vomiting #6 Ref 0 TAB Pravastatin (Pravastatin) 40 Mg Tab 40 MG PO DAILY Cholesterol Management #30 Ref 0 TAB Terazosin (Terazosin) 1 Mg Cap Unknown Dose PO HS #30 Ref 0 CAP Jay Nation MD March 20, 2017 10:28
[2017-03-20] MEDS ORDERED: ENOXAPARIN SODIUM 30 MG/0.3 ML SYRINGE SQ SCH (10:30)
[2017-03-20] MEDS ORDERED: ONDANSETRON HCL 4 MG/2 ML VIAL IV PUSH ONE (11:11)
== END 2017-03-20 11:12 | disposition home or self-care (01) | DRG 517 ==
LOC: NEPE 20:14 → NEDA 03-16 03:49 → NEPGCP 03-16 04:58 → OBSVTOIN 03-16 14:30 → N06A 03-16 16:36
PROVIDERS: ADMIT Internal Medicine; ATTEND Internal Medicine
PROC: 0QSF04Z Reposition Left Patella with Internal Fixation Device, Open Approach (ICD-10-PCS; principal; 2017-03-17 11:12)
DX: S82.042A Displaced comminuted fracture of left patella, initial encounter for closed fracture (principal); I95.9 Hypotension, unspecified; E86.0 Dehydration; R00.1 Bradycardia, unspecified; I10 Essential (primary) hypertension; Y92.89 Other specified places as the place of occurrence of the external cause; W01.0XXA Fall on same level from slipping, tripping and stumbling without subsequent striking against object, initial encounter; E78.5 Hyperlipidemia, unspecified; M17.12 Unilateral primary osteoarthritis, left knee
CPT/HCPCS: 71010; 73560; 73564; 73700; 76000; 80048; 80053; 81001; 82550; 82552; 83036; 83735; 84484; 85025; 93005; 94150; 94640; 94664; 96374; C1713; E0113; J0131; J0690; J1170; J1580; J1650; J2270; J2405; J2710; J3010; J3370; J7030; J7613; L1830